=== PATIENT | female | born 1940 | race Caucasian/White ===

== ENCOUNTER 2019-07-29 07:43 | Inpatient (IN) | payer OTHER ==
[~2019-07-29] VITALS: Ht 147.3 cm; Wt 49.9 kg
[2019-07-29] VITALS (7 sets, daily range): BP systolic 140–158
--- NOTE | 2019-07-29 07:48 | NUR ---
Patient to ER bed 08 to gown for evaluation. Side rails up.
--- NOTE | 2019-07-29 07:50 | NUR ---
Patient arrived in the ED c/o chest pain that started 2 days ago. Patient denied any shortness of breath. Denied any fevers, chills, nausea, or vomiting. Patient is alert and oriented x4, respirations even and unlabored, speaking in full sentences, ambulating with a steady gait. VSS, pain level 6/10. Granddaughter at bedside. Informed of approximate wait time. Instructed to notify ED staff for any changes in condition or worsening of symptoms. Patient verbalized understanding.
[2019-07-29] MEDS ORDERED: ASPIRIN 81 MG TAB.CHEW PO ONE (08:00)
--- NOTE | 2019-07-29 08:01 | NUR ---
ER Dr. Castillo at bedside examining patient.
--- NOTE | 2019-07-29 08:08 | NUR ---
Patient ambulated with a steady gait to the bathroom. Urine specimen collected and dropped off at the lab.
--- NOTE | 2019-07-29 08:10 | NUR ---
Administered Aspirin 81mg PO as ordered by Dr. Castillo. Patient tolerated the medication well. See eMAR for details.
--- NOTE | 2019-07-29 08:23 | NUR ---
X-ray tech at bedside as ordered by Dr. Castillo. Patient tolerated the procedure well.
--- NOTE | 2019-07-29 08:28 | NUR ---
robotics testing technician at bedside as ordered by Dr. Castillo collecting blood specimen. Patient tolerated the procedure well.
[2019-07-29 08:54] LABS: EOSINOPHILS % (AUTO) 0.9 % (0.0-4.0); HEMATOCRIT 40.1 % (36-48); LYMPHOCYTES # (AUTO) 1.1 K/uL (1.0-5.5); LYMPHOCYTES % (AUTO) 29.2 % (20.5-51.5); MEAN CORPUSCULAR HEMOGLOBIN 29 pg (27-31); MEAN CORPUSCULAR HGB CONC 33 % (32-36); MEAN CORPUSCULAR VOLUME 90 fL (79.0-98.0); MONOCYTES # (AUTO) 0.4 K/uL (0.0-1.0); MONOCYTES % (AUTO) 10.5 % (1.7-9.3); NEUTROPHILS # (AUTO) 2.2 K/uL (1.8-7.7); NEUTROPHILS % (AUTO) 58.4 % (40.0-70.0); PLATELET COUNT (AUTO) 90 K/uL (130-430); RED BLOOD CELL COUNT(AUTO) 4.47 MIL/uL (4.2-6.2); RED CELL DISTRIBUTION WIDTH 16.2 % (9.0-15.0); WHITE BLOOD COUNT (AUTO) 3.7 K/uL (4.8-10.8)
[2019-07-29 08:58] LABS: ANION GAP 5 (5-15); CALCIUM 9.3 mg/dL (8.4-11.0); CHLORIDE 95 mmol/L (98-107); GLUCOSE 114 mg/dL (70-99); POTASSIUM 3.4 mmol/L (3.5-5.1); SODIUM SERUM 130 mmol/L (136-145); UREA NITROGEN, BLOOD 15 mg/dL (8-21)
[2019-07-29 09:05] LABS: BILIRUBIN,URINE 1+ (NEGATIVE); BLOOD, URINE 1+ (NEGATIVE); COLOR,URINE YELLOW (YELLOW); GLUCOSE,URINE NEGATIVE (NEGATIVE); KETONES,URINE NEGATIVE (NEGATIVE); LEUKOCYTE ESTERASE ,URINE 2+ (NEGATIVE); NITRITE, URINE NEGATIVE (NEGATIVE); PROTEIN URINE NEGATIVE (NEGATIVE)
[2019-07-29 09:07] LABS: ALANINE AMINOTRANSFERASE 35 U/L (12-78); ALBUMIN 3.9 g/dL (3.4-4.8); ASPARTATE AMINOTRANSFERASE 45 U/L (10-37); TOTAL BILIRUBIN 1.6 mg/dL (0.0-1.0)
[2019-07-29 09:08] LABS: LIPASE 131 U/L (73-393)
[2019-07-29 09:17] LABS: CLARITY/URINE HAZY (CLEAR)
--- NOTE | 2019-07-29 09:40 | NUR ---
# 20 gauge angiocath placed to VANE. Use of asceptic technique. Opsite placed over site. Blood return noted. Flushed with 10 cc of normal saline. No evidence of infiltration noted. Patient tolerated well.
[2019-07-29 09:41] LABS: BACTERIA,URINE MODERATE /HPF (None Seen)
[2019-07-29] MEDS ORDERED: NITSL SL (10:36)
--- NOTE | 2019-07-29 10:41 | NUR ---
Administered Ciprofloxacin PO as ordered by Dr. Castillo. Patient tolerated the medication well. See eMAR for details.
[2019-07-29] MEDS ORDERED: CIPROFLOXACIN HCL 500 MG TABLET PO ONE (10:45)
--- NOTE | 2019-07-29 11:50 | NUR ---
Patient will be admitted to care of Dr. Dela Cruz. Admitted to Telemetry unit. Will go to room 103B. Belongings list completed. Complete and up to date summary report printed. SBAR report to be given at bedside with opportunity for questions.
--- NOTE | 2019-07-29 12:08 | NUR ---
ADMIT NOTE Received pt from ER to the floor with a diagnosis of CHEST PAIN, PRESSURE. Admission process initiated. patient oriented to pain management, safety and call light-teach back done. PATIENT SPEAKS [place] ONLY. GRANDAUGHTER AND DAUGHTER AT THE BEDSIDE
--- NOTE | 2019-07-29 12:15 | NUR ---
OPENING NOTES, RECEIVED PT FROM E. RBindu , PT IS AAOX3, DENIES CHEST PAIN, C/O OF 2/10 ON THE BACK. NO SOB, NO DISTRESS. FAMILY AT BEDSIDE, DISCUSSED WITH PT AND FAMILY , ORDERS AND POC. WILL CONT TO MONITOR.
--- NOTE | 2019-07-29 12:16 | NUR ---
CONSULT CARDIOLOGY CHEST PAIN ANGE,Y [phone] S/W KAYLYN EXCHANGE
[2019-07-29] MEDS ORDERED: NITROGLYCERIN 0.4 MG TAB.SUBL SL SCH (14:45)
[2019-07-29] MEDS ORDERED: LORazepam 2 MG/ML VIAL IVP PRN (14:45)
[2019-07-29] MEDS ORDERED: HYDROcodone/ACETAMIN 10-325 MG TAB PO PRN (14:45)
[2019-07-29] MEDS ORDERED: HYDROcodone/ACETAMIN 5-325 MG TAB (NORCO/ VICODIN) PO PRN (14:45)
[2019-07-29] MEDS ORDERED: ACETAMINOPHEN 325 MG TABLET PO PRN (14:45)
[2019-07-29] MEDS ORDERED: ONDANSETRON HCL 4 MG/2 ML VIAL IVP PRN (14:45)
[2019-07-29] MEDS: PSYLLIUM HUSK 1 PKT PACKET PO SCH ×2 (15:27→20:31)
--- NOTE | 2019-07-29 16:00 | NUR ---
IV ACCESS STARTED AND OLD IV ON LEFT AC REMOVED.
[2019-07-29] MEDS ORDERED: traZODone HCL 50 MG TABLET (DESYREL) PO PRN (18:00)
--- NOTE | 2019-07-29 18:00 | NUR ---
DR CASSIDY HERE AND SEEN PT. FAMILY AT BEDSIDE.
--- NOTE | 2019-07-29 19:34 | NUR ---
INITIAL NOTES Received handoff report from offgoing nurse at the bedside. Patient is resting comfortably in bed, eyes closed. Breathing even and unlabored with visible chest rise and fall noted. No SOB, no acute distress. No signs of pain or facial grimacing noted. Bed is locked, lowest position, 2x side rails up, bed alarm is on. Call light is within reach. Family currently at the bedside. Encouraged family to call for assistance. Will continue with plan of care.
--- NOTE | 2019-07-29 20:41 | NUR ---
Paging Rolando Oh Patient is requesting for sleeping medication. Paging Tosha Oh Spoke with [facility]. Awaiting for call back.
--- NOTE | 2019-07-29 20:48 | NUR ---
Dr Gorge Dela Cruz called the nurses station. Informed him that the patient would like a sleeping pill, and did not want a strong dose. Dr Dela Cruz said it is okay to give the trazadone that he ordered previously. Also informed him that the patient meets sepsis risk with WBC 3.[address] Dela Cruz ordered 1L NS bolus to be given now.
[2019-07-29] MEDS: CIPROFLOXACIN HCL 500 MG TABLET PO SCH (20:59)
[2019-07-29] MEDS: NORMAL SALINE 5 ML DISP.SYRIN IVF SCH (20:59)
[2019-07-29] MEDS ORDERED: NACL 0.9% 1,000 ML IV SCH (21:00)
[2019-07-29] MEDS ORDERED: DOCUSATE SODIUM 100 MG CAPSULE PO SCH (21:00)
[2019-07-29] MEDS ORDERED: NORMAL SALINE 5 ML DISP.SYRIN IVF SCH (22:00)
[2019-07-30] VITALS: BP_SYST 133
--- NOTE | 2019-07-30 | NUR ---
Patient resting in bed. eyes closed. Breathing even and unlabored. Visible chest rise and fall noted. No SOB, no acute distress, no signs of pain noted. Call light within reach.
--- NOTE | 2019-07-30 03:00 | NUR ---
Patient resting in bed, eyes closed. IV site intact, dressing C/D/I, saline locked. Bed is locked, lowest position, 2x side rails up. Call light within reach.
[2019-07-30] MEDS: NORMAL SALINE 5 ML DISP.SYRIN IVF SCH ×2 (06:00→15:12)
--- NOTE | 2019-07-30 06:19 | NUR ---
Closing Notes Patient resting comfortably in bed, eyes closed. Breathing even and unlabored with visible chest rise and fall noted. NO SOB, no acute distress, no signs of pain or facial grimacing noted. Bed is locked, lowest position, 2x side rails up, bed alarm is on. Call light is within reach. Fall and safety precautions maintained. All needs have been met during this shift. Will endorse care to oncoming dayshift nurse. Daughter at the bedside sleeping.
[2019-07-30 07:40] LABS: EOSINOPHILS % (AUTO) 1.4 % (0.0-4.0); HEMATOCRIT 35.1 % (36-48); HEMOGLOBIN 11.5 g/dL (12.0-16.0); LYMPHOCYTES % (AUTO) 30.9 % (20.5-51.5); MEAN CORPUSCULAR HEMOGLOBIN 30 pg (27-31); MEAN CORPUSCULAR HGB CONC 33 % (32-36); MEAN CORPUSCULAR VOLUME 90 fL (79.0-98.0); MONOCYTES # (AUTO) 0.4 K/uL (0.0-1.0); MONOCYTES % (AUTO) 13.5 % (1.7-9.3); NEUTROPHILS # (AUTO) 1.7 K/uL (1.8-7.7); NEUTROPHILS % (AUTO) 53.2 % (40.0-70.0); RED BLOOD CELL COUNT(AUTO) 3.91 MIL/uL (4.2-6.2); RED CELL DISTRIBUTION WIDTH 16.4 % (9.0-15.0); WHITE BLOOD COUNT (AUTO) 3.2 K/uL (4.8-10.8)
[2019-07-30 08:00] VITALS: BP_SYST 123
--- NOTE | 2019-07-30 08:30 | NUR ---
OPENING NOTES, RECEIVED PT IN BED, PT IS AAOX3, DENIES CHEST PAIN, NO PAIN, NO FEVER. NO SOB, NO DISTRESS. FAMILY AT BEDSIDE. SAFETY PRECAUTION IN PLACE. WILL CONT TO MONITOR.
[2019-07-30 08:36] LABS: ANION GAP 8 (5-15); CALCIUM 8.1 mg/dL (8.4-11.0); CHLORIDE 96 mmol/L (98-107); CHOLESTEROL 91 mg/dL (<200); CREATININE 0.99 mg/dL (0.55-1.30); GLUCOSE 85 mg/dL (70-99); HDL CHOLESTEROL 46 mg/dL (>55); LDL CHOLESTEROL 36 mg/dL (<100); PHOSPHORUS 3.2 mg/dL (2.7-4.5); SODIUM SERUM 129 mmol/L (136-145); TRIGLYCERIDES 47 mg/dL (30-150); UREA NITROGEN, BLOOD 12 mg/dL (8-21)
[2019-07-30 08:47] LABS: POTASSIUM 2.7 mmol/L (3.5-5.1)
[2019-07-30] MEDS: PSYLLIUM HUSK 1 PKT PACKET PO SCH ×2 (09:48→15:12)
[2019-07-30] MEDS: CIPROFLOXACIN HCL 500 MG TABLET PO SCH (09:48)
[2019-07-30] MEDS ORDERED: POTASSIUM CHLORIDE 40 MEQ in NS 250 ML IV ONE (11:00)
--- NOTE | 2019-07-30 11:00 | NUR ---
PT IN BED, FAMILY AT BEDSIDE. NO C/O PAIN. NO SOB.
[2019-07-30 13:32] LABS: PLATELET COUNT (AUTO) 74 K/uL (130-430)
--- NOTE | 2019-07-30 14:00 | NUR ---
K RIDER INFUSING WELL. NO C/O OF PAIN , NO INFILTRATION ON THE IV SITE. WILL CONT TO MONITOR.
--- NOTE | 2019-07-30 14:03 | NUR ---
Dietitian Recommendations * Recommend 2 gm Na diet w/ Ensure Enlive TID (ONS provides 1050 kcal/day, 60 gm protein/day) * Consider appetite stimulant BOBBY, XIMENA Please refer to Nutrition Assessment for details. Addendum: 07/30/19 at [address] Amended: Links added.
--- NOTE | 2019-07-30 14:43 | NUR ---
SS NOTES: GROCERY CLERK STOCKING was referred by nursing to see patient for ETOH and DCP. Demographic information confirmed (NOK: Sergey Oh - son @ [phone] or Keisha Jordan - dtr @ [phone]). Pt is alert and oriented x4. Pt appeared to be disheveled with irritable mood with guarded attitude. Pt's speech was normal and good eye contact. GROCERY CLERK STOCKING met with patient at bedside with grand-daughter Margaret, and children Ana and Avi; pt ok'd their presence. Pt is an 79 y/o female who came in via ED due to chest and back pressure. Pt currently lives with her grand daughter Margaret who is also her primary caregiver. Pt lives in a one devora home with no steps to get to the front door. Pt is independent with all his ADL's and owns a walker and a cane. Pt's source of income is SSI and snf and manages her own finances. Pt does not have history of mental health or depression but has substance use problem. Pt consumes 6-12 cans of beer daily x "a lot of years". Pt's drinking habits started after her years ago and has not gone to any treatments for ETOH in the past and is not interested in seeking treatment at this point. Per grand-daughter, the only time the patient stopped drinking and stayed sober was a year ago after she fell and had to take medications for 3 months. Pt denies any strained relationship from family and friends due to drinking and does not recognize that she has drinking problem. If discharged to a SNF, family prefers her to be around [facility] and no [facility] preference. GROCERY CLERK STOCKING provided pt with Substance Abuse treatment facilities, [facility], [facility], Senior Lifestyle booklet and emailed Sanket from [employer] for [email or web address] application. No further SS needs identified at this time but will remain available.
--- NOTE | 2019-07-30 17:22 | NUR ---
DR Jasmyne CASSIDY HERE AND MD REMINDED OF THE CRITICAL TROPONIN LEVEL AND INCREASED BNP. MD SAID NO TO WORRY ABOUT IT.
[2019-07-30] MEDS ORDERED: CIPR-211 PO (17:35)
[2019-07-30] MEDS ORDERED: TRAZ-250 PO (17:35)
[2019-07-30] MEDS ORDERED: DOCU-144 PO (17:35)
[2019-07-30] MEDS ORDERED: PSYL3.4P5 PO (17:35)
[2019-07-30 18:14] VITALS: BP_SYST 152
[2019-07-30 18:24] VITALS: BP_SYST 152
--- NOTE | 2019-07-30 19:15 | NUR ---
D/C Patient Patient given medication reconciliation form and D/C instructions. Exit Care provided. Patient verbalized understanding. MD discussed with patient the results and treatment provided. Ambulatory with steady gait for discharge to home. Patient in stable condition, ID band removed. IV catheter removed, intact and dressing applied, no active bleeding. Rx of COLACE, METAMUCIL, TRAZADONE, CIRPO given. Patient educated on pain management. All belongings sent with patient.
--- NOTE | 2019-08-07 14:02 | NUR ---
Discharge Follow Up Phone Call Phoned the number listed for patient, , and spoke with patient's granddaughter and caregiver, Margaret. Patient is doing better. She has attended a follow up appointment with her PCP, who set up home health visits, nurse and PT, with [facility] [phone]. Patient has an appointment with a supply teacher next week. They filled patient's prescriptions and patient is taking her medication as directed. [facility] has not contacted them about a [employer] application. Margaret stated they are interested in pursuing [employer] coverage for patient. Suggested to Margaret that, if patient qualifies for [employer], that she may then be eligible for [facility]. Provided that number and Social Service contact information. Phoned Sanket who will make sure his office follows up on the [employer] application today. No other questions or concerns.
== END 2019-07-30 19:00 | disposition home or self-care (01) | DRG 206 ==
LOC: SED 07:43 → STU 11:24
PROVIDERS: ADMIT Preventive Medicine Preventive Medicine/Occupational Environmental Medicine; ATTEND Preventive Medicine Preventive Medicine/Occupational Environmental Medicine
DX: M94.0 Chondrocostal junction syndrome [Tietze] (principal); D61.818 Other pancytopenia; E87.1 Hypo-osmolality and hyponatremia; E78.5 Hyperlipidemia, unspecified; E83.52 Hypercalcemia; E87.6 Hypokalemia; G47.00 Insomnia, unspecified; I11.0 Hypertensive heart disease with heart failure; I25.10 Atherosclerotic heart disease of native coronary artery without angina pectoris; I50.9 Heart failure, unspecified; K59.00 Constipation, unspecified; E80.6 Other disorders of bilirubin metabolism
CPT/HCPCS: 36415; 71045; 80048; 80053; 80061; 81000-TC; 82550-TC; 83690-TC; 83735-TC; 83880; 84100-TC; 84484; 85025; 87086; 93005; 93306; 99285; G0378; J3480; J7030; J7050

== ENCOUNTER 2019-08-21 14:37 | Emergency (ER) | payer OTHER ==
[~2019-08-21] VITALS: Ht 144.8 cm; Wt 49.9 kg
[~2019-08-21 14:37] MED LIST: CIPR-211 PO; DOCU-144 PO; NITSL SL; PSYL3.4P5 PO; TRAZ-250 PO
--- NOTE | 2019-08-21 14:45 | NUR ---
PATIENT TO ER #1
[2019-08-21 14:56] VITALS: BP_SYST 163
--- NOTE | 2019-08-21 15:29 | NUR ---
PATIENT PRESENTS TO THE ER WITH HX OF GENERALIZED MID ABDOMINAL PAIN WITH DIARRHEA WITH RADIATION TO LUMBAR AREA FOR THREE DAYS; NO TRAUMA, NO OTHER REMARKABLE S/S
[2019-08-21 15:59] LABS: BASOPHILS % (AUTO) 0.4 % (0.0-2.0); EOSINOPHILS % (AUTO) 0.6 % (0.0-4.0); HEMATOCRIT 37.9 % (36-48); HEMOGLOBIN 12.3 g/dL (12.0-16.0); LYMPHOCYTES # (AUTO) 0.7 K/uL (1.0-5.5); LYMPHOCYTES % (AUTO) 16.4 % (20.5-51.5); MEAN CORPUSCULAR HEMOGLOBIN 29 pg (27-31); MEAN CORPUSCULAR HGB CONC 33 % (32-36); MEAN CORPUSCULAR VOLUME 90 fL (79.0-98.0); MONOCYTES # (AUTO) 0.4 K/uL (0.0-1.0); MONOCYTES % (AUTO) 8.2 % (1.7-9.3); NEUTROPHILS # (AUTO) 3.4 K/uL (1.8-7.7); NEUTROPHILS % (AUTO) 74.4 % (40.0-70.0); RED BLOOD CELL COUNT(AUTO) 4.23 MIL/uL (4.2-6.2); RED CELL DISTRIBUTION WIDTH 17.1 % (9.0-15.0); WHITE BLOOD COUNT (AUTO) 4.5 K/uL (4.8-10.8)
[2019-08-21 16:13] LABS: PLATELET COUNT (AUTO) 94 K/uL (130-430)
[2019-08-21 16:17] LABS: ANION GAP 10 (5-15); CALCIUM 8.9 mg/dL (8.4-11.0); CHLORIDE 99 mmol/L (98-107); CREATININE 0.81 mg/dL (0.55-1.30); GLUCOSE 124 mg/dL (70-99); POTASSIUM 4.3 mmol/L (3.5-5.1); SODIUM SERUM 134 mmol/L (136-145); UREA NITROGEN, BLOOD 26 mg/dL (8-21)
[2019-08-21 16:22] LABS: ALANINE AMINOTRANSFERASE 63 U/L (12-78); ALBUMIN 3.7 g/dL (3.4-4.8); ASPARTATE AMINOTRANSFERASE 100 U/L (10-37); TOTAL BILIRUBIN 2.2 mg/dL (0.0-1.0)
--- NOTE | 2019-08-21 16:24 | NUR ---
REASSESSMENT; PATIENT STATES HER SYMPTOMS ARE UNCHANGED; DISPOSITION PENDING
[2019-08-21 16:59] LABS: CLARITY/URINE CLEAR (CLEAR); COLOR,URINE YELLOW (YELLOW); PH,URINE 7.5 (5.0-8.0)
[2019-08-21 17:00] LABS: BILIRUBIN,URINE NEGATIVE (NEGATIVE); BLOOD, URINE TRACE (NEGATIVE); GLUCOSE,URINE NEGATIVE (NEGATIVE); KETONES,URINE NEGATIVE (NEGATIVE); LEUKOCYTE ESTERASE ,URINE 1+ (NEGATIVE); NITRITE, URINE NEGATIVE (NEGATIVE); PROTEIN URINE NEGATIVE (NEGATIVE); UROBILINOGEN,URINE 0.2 (0.2-1.0)
[2019-08-21 17:03] LABS: BACTERIA,URINE FEW /HPF (None Seen); RBC,URINE 0-3 /HPF (0-3)
[2019-08-21 17:04] LABS: MUCUS,URINE None Seen /LPF (None Seen)
--- NOTE | 2019-08-21 18:01 | NUR ---
REASSESSMENT; PATIENT REMAINS SEDATE AND UNCHANGED; DISPOSITION PENDING
--- NOTE | 2019-08-21 18:10 | NUR ---
IV #22 PLACED RIGHT FOREARM PER ERMD
[2019-08-21] MEDS ORDERED: cefTRIAXone 1 GM IVPB PREMIX 50 ML IV ONE (18:30)
[2019-08-21] MEDS ORDERED: KETOROLAC TROMETHAMINE 30 MG VIAL IVP ONE (18:30)
--- NOTE | 2019-08-21 18:33 | NUR ---
PATIENT REMAINS ON COMMUNICATIONS PROFESSOR
[2019-08-21 20:02] VITALS: BP_SYST 149
--- NOTE | 2019-08-21 20:02 | NUR ---
Patient given written and verbal discharge instructions and verbalizes understanding. ER MD Dr. Correa discussed with patient the results and treatment provided. Patient in stable condition. ID arm band removed. IV catheter removed intact and dressing applied, no active bleeding. Rx of Macrobid and Pyridium given. Patient educated on pain management and to follow up with PMD. Pain Scale 5/10. Opportunity for questions provided and answered. Medication side effect fact sheet provided.
== END 2019-08-21 20:02 | disposition home or self-care (01) ==
LOC: SED 14:37
DX: N39.0 Urinary tract infection, site not specified (principal); R10.30 Lower abdominal pain, unspecified; F10.20 Alcohol dependence, uncomplicated; Y90.9 Presence of alcohol in blood, level not specified; I50.9 Heart failure, unspecified; Z79.899 Other long term (current) drug therapy
CPT/HCPCS: 36415; 74176; 80053; 81000; 85025; 87040; 87086; 96365; 96375; 99284; J0696; J1885